=== PATIENT | female | born 1950 | race Caucasian/White ===

== ENCOUNTER 2016-10-07 14:14 | Inpatient (IN) | payer MEDICARE, MEDICAID ==
[~2016-10-07] VITALS: Ht 171.4 cm; Wt 67.6 kg
[~2016-10-07 14:14] MED LIST: ALEN1TAB48 PO; ATOR20TA15 PO; FOLI1TAB4 PO; HUMI20KI SQ; HYDR-3366 PO; METH4TAB6 PO; MIRT30TA PO; [UNRECOGNIZED DRUG - CODE] SQ
[2016-10-22 08:04] VITALS: BP 121/71; PULSE 82; RESP 18; TEMP 98.1; O2SAT 98
[2016-10-22] MEDS ORDERED: CHLORHEXIDINE GLUCONATE 2 % 1 PACK (2 CLOTHS) TOPICAL PRN (08:30)
[2016-10-22] MEDS ORDERED: ROPIVACAINE PERI-ARTICULAR INJECTION. P-ARTICULR SCH ×5 (08:30)
[2016-10-22] MEDS ORDERED: ceFAZolin 2 GM PREMIX 50 ML IV SCH (08:30)
[2016-10-22] MEDS ORDERED: POVIDONE IODINE 5% (ANTISEPSIS KIT) 4 APPLICATIONS EACH NARE PRN (08:30)
[2016-10-22] MEDS: CHLORHEXIDINE GLUCONATE 4% SOLN 120 ML BTL TOPICAL SCH (08:30)
[2016-10-22] MEDS ORDERED: VANCOMYCIN 1000 MG/NS 250 ML (for <70 kg) IV SCH ×2 (08:30)
[2016-10-22] MEDS ORDERED: SODIUM CHLORID 0.9% 500 ML IV PRN (08:30)
[2016-10-22] MEDS ORDERED: LACTATED RINGER'S 1000 ML IV PRN (08:30)
[2016-10-22] MEDS ORDERED: METOPROLOL TARTRATE 25 MG TAB PO PRN (08:30)
[2016-10-22] MEDS ORDERED: INSULIN HUMAN REGULAR 1,000 UNITS/10 ML VIAL SQ PRN (08:30)
[2016-10-22] MEDS ORDERED: GENTAMICIN SULFATE 80 MG/2 ML VIAL ONE (08:59)
[2016-10-22] MEDS ORDERED: ACETAMINOPHEN 1000 MG/100 ML VIAL IV ONE (09:09)
[2016-10-22] MEDS ORDERED: MORPHINE SULFATE 4 MG/ML INJ ONE (09:09)
[2016-10-22] MEDS ORDERED: HYDROCORTISONE SOD SUCCINATE 100 MG VIAL ONE (09:09)
[2016-10-22] MEDS ORDERED: ROPIVACAINE 0.5% PF INJ 30 ML VIAL NERV BLOCK ONE (09:16)
[2016-10-22] MEDS ORDERED: MIDAZOLAM HCL 2 MG/2 ML VIAL ONE (09:19)
[2016-10-22] MEDS ORDERED: fentaNYL CITRATE 250 MCG/5 ML AMP ONE (09:27)
[2016-10-22] MEDS ORDERED: TRANEXAMIC ACID INJ 600 MG in SODIUM CHLORIDE 0.9% INJ 100 ML IV SCH (09:45)
[2016-10-22] MEDS ORDERED: TRANEXAMIC ACID IV SCH (11:00)
[2016-10-22] MEDS ORDERED: SODIUM CHLORIDE 0.9% IV SCH (11:00)
--- NOTE | 2016-10-22 11:33 | PD.OP ---
cc: Curtis Silva MD; Cesar Silva MD Operative Report Date of Surgery: Oct 22, 2016 Preoperative Diagnosis: Osteoarthritis right knee, severe. History of previous right distal femur fracture, remote Postoperative Diagnosis: Same Procedure: Right total knee replacement arthroplasty, anterior exposure Anesthesia: Gen. Surgeon: Cesar Silva General Dentist(s): Curtis Silva Operation and Findings: EBL: 200 cc INDICATION: This patient presents with long-standing arthritis of the knee. Attachment record documents conservative measures. The patient now presents for surgical treatment. NOTE: Curtis Silva M.D. was present for the entire surgical procedure as my assistant boiler operator. In my medical opinion her skill and care was necessary for proper management of this patient. TOURNIQUET TIME: 55 minutes COMPANY: [employer] FEMUR: Size 4, posterior stabilized, right TIBIA: Size 4, fixed bearing PATELLA: 41 mm POLYETHYLENE INSERT: 8 mm PROCEDURE: This patient was brought the operating room and anesthetized in the supine position. The patient was positioned supine on the table. The tourniquet was placed about the thigh, and the leg was scrubbed with alcohol followed by Hibiclens followed by ChloraPrep and draped sterilely. A timeout was done, and antibiotics were given. After exsanguination the tourniquet was inflated to 250 mmHg. An anterior incision was made and a median parapatellar arthrotomy was performed. The previous incision was excised. The patella was released laterally and subluxed allowing freehand cut of the patella which was then sized. A metal cap was placed over the exposed patellar surface for protection. A ems helicopter pilot hole was placed in the distal femur allowing a 5 valgus cut removing 10 mm from the distal femur. Anterior posterior and chamfer cuts were made. The posterior stabilize osteotomy was made. The attention was directed to the tibia. Retractors were positioned. The external alignment guide was used allowing the lateral tibia to be used as referencing guide and cut utilizing an oscillating saw taking care to avoid any injury to the surrounding soft tissues. This was sized properly. Trial reduction showed that the insert fit nicely. The patient had range of motion extension 0 flexion 120. A medial release was not necessary. The bony surfaces prepared. On the back table 2 packets of methylmethacrylate were mixed. The components were cemented. Excess cement was removed. The tourniquet let down and hemostasis was controlled. The final plastic insert was inserted. Range of motion was the same as previously noted. A drain was brought through a separate stab incision. The arthrotomy was repaired with interrupted #1 Vicryl suture, subcutaneous tissue 2-0 Vicryl suture and skin with metallic julianne A sterile dressing was applied. Sponge counts, needle counts and instrument counts were all correct. The patient tolerated procedure well and was taken to recovery in satisfactory condition. FINDINGS: There was severe osteoporosis. The patient had a mild malunion from a previous distal femur fracture. Because of that, the initial ems helicopter pilot hole was placed more lateral and posterior than usual. No complication was appreciated. The final solution appeared to be very satisfactory. Cesar Silva MD Oct 22, 2016 11:33
[2016-10-22] MEDS ORDERED: LACTATED RINGER'S 1000 ML INJ 1,000 ML IV ONE (12:00)
[2016-10-22] MEDS ORDERED: ACETAMINOPHEN/HYDROcodone 325 MG/10 MG TAB PO PRN ×2 (12:00)
[2016-10-22] MEDS ORDERED: ZOLPIDEM TARTRATE 5 MG TAB PO PRN (12:00)
[2016-10-22] MEDS ORDERED: ONDANSETRON HCL 4 MG/2 ML VIAL IVP PRN (12:00)
[2016-10-22] MEDS ORDERED: ALUMINUM/MAGNESIUM/SIMETH 30 ML CUP PO PRN (12:00)
[2016-10-22] MEDS ORDERED: MORPHINE SULFATE 30 MG/30 ML PCA IV SCH (12:00)
[2016-10-22] MEDS ORDERED: ONDANSETRON HCL 4 MG/2 ML VIAL IV PUSH ONE (12:00)
[2016-10-22] MEDS ORDERED: NALOXONE HCL 0.4 MG/ML AMP IV PRN (12:00)
[2016-10-22] MEDS ORDERED: Post-op Orders (for Pharmacy) MISC XX ONE (12:00)
[2016-10-22] MEDS ORDERED: ALENDRONATE SODIUM 70 MG TAB PO SCH (12:00)
[2016-10-22] MEDS ORDERED: TRANEXAMIC ACID INJ 1,000 MG/10 ML AMP IV ONE (12:00)
[2016-10-22] MEDS ORDERED: PROPOFOL 200 MG/20 ML AMP IV ONE (12:00)
[2016-10-22] MEDS ORDERED: SODIUM CHLORIDE 0.9% FLUSH 5 ML FLUSH IVF PRN (12:00)
[2016-10-22] MEDS ORDERED: BEDSIDE COMMODE1 MI1 (12:08)
[2016-10-22] MEDS ORDERED: CPMMACHINE (12:08)
[2016-10-22] MEDS ORDERED: WALKER WHEELS/F1 MIS (12:08)
[2016-10-22] MEDS ORDERED: *morphine SULFATE 8 MG/ML PERIprocedure ONLY ONE ×3 (12:09→12:25)
--- NOTE | 2016-10-22 12:10 | HHI.FF ---
Face to Face Verification Diagnosis: (1) Osteoarthritis of right knee Physical Therapy Gait training, Transfer training, bed to chair Knee: Total knee, Protocol: Right, Full weight bearing Canvas Knee Splint: Other (while sleeping at night) Right LE Weight Bearing: WB as tolerated Left LE Weight Bearing: WB as tolerated Nursing RN: 3 days/week x 2 weeks Nursing: Dressing changes (clean incision with alcohol and apply dry sterile dressing ) Additional Instructions Pt/INR q Wednesday and , call/text results to Mirella ESPINAL [phone] Goal INR 1.5-1.8 I have seen patient Odalis Dumont on 10/22/16. My clinical findings support the need for the requested home health care services because: Deconditioned w/ increased weakness High risk of falls I certify that my clinical findings support that this patient is homebound because: Post-op weakness Unsteady gait/balance Curtis Silva MD Oct 22, 2016 12:10
--- NOTE | 2016-10-22 13:25 | RADRPT ---
EXAM DATE/TIME: 10/22/2016 13:43 [facility] COMPARISON: No previous studies available for comparison. INDICATIONS : Post op right knee. MEDICAL HISTORY : Arthritis. SURGICAL HISTORY : None. ENCOUNTER: Initial ACUITY: 1 day PAIN SCORE: 10/10 LOCATION: Right knee FINDINGS: Right total knee arthroplasty is present. The hardware appears intact. The alignment is anatomic. The re is deformity and density change associated with an old healed fracture of the distal femoral metap hysis. Skin julianne are present ventrally. Surgical drains are present. CONCLUSION: Satisfactory appearance post right TKA Eulalio Saavedra MD on October 22, 2016 at 13:22 Board Certified Radiologist. This report was verified electronically.
[2016-10-22] MEDS: PCA - TOTAL MG MORPHINE DELIVERED PER SHIFT SCH ×2 (14:00→22:00)
[2016-10-22] MEDS: LACTATED RINGER'S 1000 ML INJ 1,000 ML IV SCH ×2 (14:05→23:35)
--- NOTE | 2016-10-22 15:15 | PD.CONS ---
HPI Service Family Medicine Consult Requested By Dr. Curtis Silva Reason for Consult Management of chronic medical conditions, acute medical issues Primary Care Physician Celia Onofre MD History of Present Illness 66 ear old female with past medical history of cardiac arrhythmia status-post AICD placement and rheumatoid arthritis admitted to the hospital for right total knee replacement due to right knee osteoarthritis. Currently postop day 0. Tolerated the procedure well without complication. Currently awake, alert. No nausea, no vomiting. Mild pain, currently well controlled. Denies chest pains , shortness of breath, headaches, vision changes, numbness, tingling, abdominal pain. She has no concerns. Review of Systems Constitutional: DENIES: Fever, Chills Endocrine: DENIES: Heat/cold intolerance Eyes: DENIES: Blurred vision Respiratory: DENIES: Cough, Wheezing, Shortness of breath Cardiovascular: DENIES: Chest pain Gastrointestinal: DENIES: Abdominal pain Genitourinary: DENIES: Dysuria Musculoskeletal: COMPLAINS OF: Joint Swelling (postop right knee) Hematologic/lymphatic: DENIES: Bruising Immunologic/allergic: DENIES: Eczema Neurologic: DENIES: Abnormal gait, Headache, Localized weakness, Paresthesias Psychiatric: DENIES: Confusion, Depression Past Family Social History Past Medical History Rheumatoid Arthritis pacemaker/defibrillator, [employer] Model 5826/Serial [id number] Basal Cell CA, R arm Past Surgical History Left total knee replacement 02/2016 eye operations as a child AICD/pacemaker placement (11/2009) Basal Cell CA excision, R arm Allergies: Coded Allergies: No Known Allergies (Verified , 09/29/16) Family History mother - dementia father - old age, DM II, HTN, CAD, CABG 4V, prostate CA son - down syndrome Social History Lives with son who has Down Syndrome. , not sexually active. 1 glass wine/night. Never smoker. Swims daily. Physical Exam Vital Signs Vital Signs Date Time Temp Pulse Resp B/P Pulse Ox O2 Delivery O2 Flow Rate FiO2 10/22/16 14:05 12 10/22/16 14:00 97.7 66 15 143/80 97 Nasal Cannula 2 10/22/16 13:45 75 14 102/55 96 Nasal Cannula 2 10/22/16 13:30 77 12 140/77 98 Nasal Cannula 3 10/22/16 13:15 74 9 100/54 98 Nasal Cannula 3 10/22/16 13:00 69 10 108/58 98 Nasal Cannula 3 10/22/16 12:45 78 12 112/63 98 Nasal Cannula 3 10/22/16 12:30 72 16 115/59 97 Nasal Cannula 3 10/22/16 12:15 79 15 125/70 98 Nasal Cannula 3 10/22/16 12:02 97.3 89 15 126/74 98 Simple Mask 5 10/22/16 08:04 98.1 82 18 121/71 98 Physical Exam GENERAL: WDWN elder white female sitting up in chair, comfortable, NAD SKIN: No rashes, ecchymoses or lesions. Cool and dry. HEAD: NC/AT EYES: PERRL. EOMI. No conjunctival injection or drainage. ENT: MMM, OP without erythema, tonsillar swelling, or exudate. NECK: Supple, no lymphadenopathy. No JVD. CARDIOVASCULAR: NRRR. Normal S1/S2. No MRG. Brisk capillary refill BUE. RESPIRATORY: CTAB. No crackles or wheezes. GASTROINTESTINAL: Abdomen soft, non-distended, non-tender. MUSCULOSKELETAL: R knee bound in brace with melanie-wrap. No obvious deformity. BUE without cyanosis, clubbing, or edema. NEUROLOGICAL: Awake and alert. Normal speech. Grossly nonfocal. Sensation intact at b/l toes. Laboratory Laboratory Tests Test 10/22/16 10/22/16 08:18 14:08 Blood Type O POSITIVE Antibody Screen NEGATIVE Crossmatch Leukocyte-Reduced Red Blood Cells Blood Bank Comment Antibody Identification Anti-Fya Imaging Last Impressions Knee X-Ray 10/22/16 1200 Signed Impressions: Service Date/Time: October 13:43 - CONCLUSION: Satisfactory appearance post right TKA Eulalio Saavedra MD Assessment and Plan Assessment and Plan 66 yo female with PMH of arrhythmia s/p AICD placement and RA presenting with: Problem List: (1) Status post total right knee replacement Status: Acute Plan: POD 0 s/p right total knee replacement. Tolerated procedure well. - Per ortho, warfarin daily@1600 for DVT prophylaxis titrated per protocol - 5 mg for INR < 1.2 - 2.5 mg for INR 1.2 - 1.5 - 0 mg for INR > 1.5 - Check PT/INR in AM - Pain control with [place] 5 & 10 PRN based on pain scale - Treat with vitamin D as below (2) History of cardiac arrhythmia Status: Chronic Plan: S/p AICD placement. Currently stable, rate on exam borderline bradycardic - Telemetry for 24 hours post-op; if no events can be discontinued (3) Vitamin D deficiency Status: Acute Plan: - Check vitamin D level in AM - Continue 400 units daily, increase based on level (4) Rheumatoid arthritis Status: Chronic Plan: Currently stable, no major nodules appreciated - Continue Humara, medrol (5) Osteoporosis Status: Chronic Plan: Stable - Continue home bisphosphonate (6) Fluids, Electrolytes, and Nutrition Status: Acute Plan: Fluids: Only PO at this time Elecs: Monitor and replete as needed Nutrition: Diet regular basic (7) DVT Prophylaxis Status: Acute Plan: On coumadin, manage as above dw Trev Blum MD R1 Oct 22, 2016 3:15 pm
[2016-10-22 15:49] VITALS: BP 114/54; PULSE 64; RESP 17; TEMP 95.3; O2SAT 99
[2016-10-22 17:54] VITALS: O2SAT 98
[2016-10-22 19:52] VITALS: BP 92/48; PULSE 60; RESP 18; TEMP 95.5; O2SAT 99
[2016-10-22 20:49] VITALS: PULSE 60
[2016-10-22] MEDS: methylPREDNISolone 4 MG TAB PO SCH (20:55)
[2016-10-22] MEDS ORDERED: ATORVASTATIN 20 MG TAB PO SCH (21:00)
[2016-10-22] MEDS: SODIUM CHLORIDE 0.9% FLUSH 5 ML FLUSH IVF SCH (21:00)
[2016-10-22] MEDS ORDERED: MIRTAZAPINE 15 MG TAB PO SCH (21:00)
[2016-10-22 23:10] VITALS: BP 84/50; PULSE 57; RESP 18; TEMP 95.2; O2SAT 95
[2016-10-22] MEDS ORDERED: SODIUM CHLORID 0.9% 500 ML INJ 500 ML IV ONE (23:30)
[2016-10-23] VITALS (8 sets, daily range): BP systolic 80–95; BP diastolic 47–62; PULSE 57–67; RESP 16–18; TEMP 95.1–95.5; O2SAT 96–100
[2016-10-23] MEDS ORDERED: SODIUM CHLOR 0.9% 250 ML INJ 250 ML IV ONE ×2 (01:00→02:45)
[2016-10-23 05:30] LABS: INTERNATIONAL NORMALIZED RATIO 1.7 RATIO; PROTHROMBIN TIME - PATIENT 19.1 SEC (9.8-11.6)
[2016-10-23 05:31] LABS: HEMATOCRIT 26.5 % (35.0-46.0); MEAN CELL VOLUME 89.7 FL (80.0-100.0); MEAN CORPUSCULAR HEMOGLOBIN 29.4 PG (27.0-34.0); MEAN CORPUSCULAR HGB CONC 32.8 % (32.0-36.0); PLATELET COUNT 180 TH/MM3 (150-450); RED BLOOD COUNT 2.96 MIL/MM3 (4.00-5.30); RED CELL DISTRIBUTION WIDTH 16.4 % (11.6-17.2); REVIEW FLAG FINAL; WHITE BLOOD COUNT 10.9 TH/MM3 (4.0-11.0)
[2016-10-23 05:37] LABS: POTASSIUM 4.5 MEQ/L (3.5-5.1)
[2016-10-23] MEDS: PCA - TOTAL MG MORPHINE DELIVERED PER SHIFT SCH ×2 (06:00→14:00)
--- NOTE | 2016-10-23 07:50 | PD.ORT.PN ---
Subjective Subjective Remarks pt doing well, states her right knee is fine, minimal pain does state her blood pressure has been running low Objective Vitals Vital Signs Date Time Temp Pulse Resp B/P Pulse Ox O2 Delivery O2 Flow Rate FiO2 10/23/16 03:30 95.1 59 16 92/52 96 10/23/16 02:05 57 88/54 10/23/16 02:01 86/54 10/23/16 00:33 80/47 82/54 10/22/16 23:10 95.2 57 18 84/50 95 10/22/16 20:49 60 10/22/16 19:52 95.5 60 18 92/48 99 10/22/16 17:54 98 Nasal Cannula 3.00 10/22/16 15:49 95.3 64 17 114/54 99 10/22/16 14:05 12 10/22/16 14:00 97.7 66 15 143/80 97 Nasal Cannula 2 10/22/16 13:45 75 14 102/55 96 Nasal Cannula 2 10/22/16 13:30 77 12 140/77 98 Nasal Cannula 3 10/22/16 13:15 74 9 100/54 98 Nasal Cannula 3 10/22/16 13:00 69 10 108/58 98 Nasal Cannula 3 10/22/16 12:45 78 12 112/63 98 Nasal Cannula 3 10/22/16 12:30 72 16 115/59 97 Nasal Cannula 3 10/22/16 12:15 79 15 125/70 98 Nasal Cannula 3 10/22/16 12:02 97.3 89 15 126/74 98 Simple Mask 5 10/22/16 08:04 98.1 82 18 121/71 98 I/O 10/22/16 10/22/16 10/22/16 10/23/16 10/23/16 10/23/16 07:00 15:00 23:00 07:00 15:00 23:00 Intake Total 1400 ml 1075 ml 1737 ml Output Total 325 ml 375 ml 930 ml Balance 1075 ml 700 ml 807 ml Intake Oral 480 ml 120 ml IV Total 200 ml 595 ml 1617 ml Other 1200 ml Output Urine Total 275 ml 225 ml 800 ml Drainage Total 100 ml 130 ml Estimated Blood Loss 50 ml Autotransfusion 50 ml # Bowel Movements 0 0 Result Diagram: 10/23/16 0446 10/23/16 0446 Other Results Laboratory Tests Test 10/23/16 04:46 Prothrombin Time 19.1 SEC (9.8-11.6) Prothromb Time International 1.7 RATIO Ratio Imaging Last 24 hours Impressions Knee X-Ray 10/22/16 1200 Signed Impressions: Service Date/Time: October 13:43 - CONCLUSION: Satisfactory appearance post right TKA Eulalio Saavedra MD Objective Remarks patient resting comfortably in bed right knee dressing dry and intact canvas knee splint in place no calf tenderness, neg homans sign Assessment & Plan Assessment and Plan POD #1 s/p R TKA coumadin dvt prop per protocol, hold today for INR 1.7 PT-WBAT, CPM hgb 8.7, start iron BID patient would like to be discharged home today, I stated she is on tele per medical until she is 24 hours post op and blood pressure continues to be low if she is medically stable this afternoon and has completed all therapy, then she can be discharged otherwise will discharge tomorrow home with [facility] coumadin 1 mg and norco 10 mg rx in chart Mirella Mccabe Oct 23, 2016 07:50
[2016-10-23] MEDS: CHLORHEXIDINE GLUCONATE 4% SOLN 120 ML BTL TOPICAL SCH (08:30)
[2016-10-23] MEDS ORDERED: CHOLECALCIFEROL (VIT D3) 400 UNIT TAB PO SCH (09:00)
[2016-10-23] MEDS: SODIUM CHLORIDE 0.9% FLUSH 5 ML FLUSH IVF SCH (09:00)
[2016-10-23] MEDS ORDERED: FERROUS SULFATE 325 MG (65 MG ELEMENTAL IRON) TAB PO SCH (09:00)
[2016-10-23] MEDS: methylPREDNISolone 4 MG TAB PO SCH (09:56)
[2016-10-23] MEDS ORDERED: FERR325T PO (11:31)
[2016-10-23] MEDS ORDERED: WARFARIN SOD 5 MG TAB PO SCH ×2 (12:00→16:00)
[2016-10-23] MEDS ORDERED: METHOTREXATE SOD PF 50 MG/2 ML VIAL SQ SCH (12:00)
[2016-10-23] MEDS: LACTATED RINGER'S 1000 ML INJ 1,000 ML IV SCH (13:00)
[2016-10-23] MEDS ORDERED: ADALIMUMAB 20 MG SQ SCH (13:00)
--- NOTE | 2016-10-23 13:39 | HHI.FPPN ---
Subjective Remarks Sitting up in bed, no distress. Pain well controlled. Has been ambulating without much difficulty. Blood pressures running low but her baseline is low and she is asymptomatic. Telemetry reviewed and discontinued. Very eager to go home. No chest pain, shortness of breath, abdominal pain, nausea, vomiting, diarrhea. No calf tenderness. (Miller Adam MD R2) Objective Vitals Vital Signs Date Time Temp Pulse Resp B/P Pulse Ox O2 Delivery O2 Flow Rate FiO2 10/23/16 12:00 95.5 67 18 95/47 96 10/23/16 08:00 95.3 59 18 89/51 100 10/23/16 08:00 99 21 10/23/16 03:30 95.1 59 16 92/52 96 10/23/16 02:05 57 88/54 10/23/16 02:01 86/54 10/23/16 00:33 80/47 82/54 10/22/16 23:10 95.2 57 18 84/50 95 10/22/16 20:49 60 10/22/16 19:52 95.5 60 18 92/48 99 10/22/16 17:54 98 Nasal Cannula 3.00 10/22/16 15:49 95.3 64 17 114/54 99 10/22/16 14:05 12 10/22/16 14:00 97.7 66 15 143/80 97 Nasal Cannula 2 10/22/16 13:45 75 14 102/55 96 Nasal Cannula 2 10/22/16 13:30 77 12 140/77 98 Nasal Cannula 3 I/O 10/22/16 10/22/16 10/22/16 10/23/16 10/23/16 10/23/16 07:00 15:00 23:00 07:00 15:00 23:00 Intake Total 1400 ml 1075 ml 1737 ml Output Total 325 ml 375 ml 930 ml Balance 1075 ml 700 ml 807 ml Intake Oral 480 ml 120 ml IV Total 200 ml 595 ml 1617 ml Other 1200 ml Output Urine Total 275 ml 225 ml 800 ml Drainage Total 100 ml 130 ml Estimated Blood Loss 50 ml Autotransfusion 50 ml # Bowel Movements 0 0 (Miller Adam MD R2) Result Diagram: 10/23/16 0446 10/23/16 0446 Imaging Last 72 hours Impressions Knee X-Ray 10/22/16 1200 Signed Impressions: Service Date/Time: October 13:43 - CONCLUSION: Satisfactory appearance post right TKA Eulalio Saavedra MD Objective Remarks GENERAL: Sitting up in chair, no distress SKIN: No rashes, ecchymoses or lesions. Surgical scar left knee, right knee with bandage. HEAD: NC/AT EYES: PERRL. EOMI. No conjunctival injection or drainage. ENT: MMM, OP without erythema, tonsillar swelling, or exudate. NECK: Supple, no lymphadenopathy. No JVD. CARDIOVASCULAR: NRRR. Normal S1/S2. No MRG. RESPIRATORY: CTAB. No crackles or wheezes. GASTROINTESTINAL: Abdomen soft, non-distended, non-tender. MUSCULOSKELETAL: R knee bound with bandage in place. NEUROLOGICAL: Awake and alert. Normal speech. Sensation intact at b/l toes. ( Miller Adam MD R2) A/P Assessment and Plan 66 yo female with PMH of arrhythmia s/p AICD placement and RA who is s/p day 1 after total knee replacement. Discharge Planning Plan for discharge home today with wheeled walker. She declines rehab. (Milelr Adam MD R2) Attending Attestation Patient seen, examined, and discussed with resident team. I agree with assessment and management as documented and discussed with me. Pt reports that her pain is controlled. She requests discharge home - she has all equipment at home and also has help. Nursing is concerned about low BPs. Pt reports that she is out of bed without lightheadedness. Review of BPs as an outpatient reveal that she is essentially at baseline blood pressure. She is medically cleared for discharge. (Celia Onofre MD) Problem List: (1) Status post total right knee replacement Status: Acute Plan: POD 1 s/p right total knee replacement. Tolerated procedure well. Ambulating without much difficulty. Pain well controlled. She does not want rehab. Eager to go home today. - Per ortho, warfarin daily@1600 for DVT prophylaxis titrated per protocol - 5 mg for INR < 1.2 - 2.5 mg for INR 1.2 - 1.5 - 0 mg for INR > 1.5 - Check PT/INR in AM - Pain control with [place] 5 & 10 PRN, not requiring it thus far - Treat with vitamin D as below (2) Vitamin D deficiency Status: Acute Plan: Vitamin D 19.6. - Continue vitamin D supplementation, 1000 mg daily. (3) History of cardiac arrhythmia Status: Chronic Plan: S/p AICD placement. Telemetry reviewed, no arrhythmic events. - Discontinue telemetry (4) Rheumatoid arthritis Status: Chronic Plan: Currently stable, no major nodules appreciated - Continue Humira, Medrol (5) Osteoporosis Status: Chronic Plan: Stable - Continue home bisphosphonate (6) Fluids, Electrolytes, and Nutrition Status: Acute Plan: Fluids: PO Nutrition: Diet regular basic (7) DVT Prophylaxis Status: Acute Plan: On coumadin, manage as above sdw Dr. Onofre (Miller Adam MD R2) Miller Adam MD R2 Oct 23, 2016 13:38 Celia Onofre MD Oct 23, 2016 21:20
[2016-10-23] MEDS ORDERED: VITA100018 PO (13:52)
[2016-10-24] MEDS ORDERED: CHOLECALCIFEROL (VIT D3) 1000 UNIT TAB PO SCH (09:00)
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
[2016-11-17] MEDS ORDERED: VITA100018 PO (13:20)
[2016-11-17] MEDS ORDERED: FERR325T PO (15:35)
[2016-11-18] MEDS ORDERED: FERR325T PO (16:55)
== END 2016-10-23 17:31 | disposition home health service (06) | DRG 470 ==
LOC: HSDI 10-22 06:59 → N06A 10-22 15:07
PROVIDERS: ADMIT Orthopaedic Surgery Orthopaedic Surgery of the Spine; ATTEND Orthopaedic Surgery Orthopaedic Surgery of the Spine
PROC: 3E0T3CZ (ICD-10-PCS; 2016-10-22)
PROC: 0SRC0J9 Replacement of Right Knee Joint with Synthetic Substitute, Cemented, Open Approach (ICD-10-PCS; principal; 2016-10-22 09:26)
DX: M17.11 Unilateral primary osteoarthritis, right knee (principal); E55.9 Vitamin D deficiency, unspecified; M06.9 Rheumatoid arthritis, unspecified; M81.0 Age-related osteoporosis without current pathological fracture; Z95.810 Presence of automatic (implantable) cardiac defibrillator; Z85.828 Personal history of other malignant neoplasm of skin; Z96.652 Presence of left artificial knee joint
CPT/HCPCS: 36430; 73560; 80048; 82306; 83735; 84100; 85027; 85610; 86077; 86850; 86870; 86900; 86901; 86902; 86920; 86922; 94150; C1776; J0131; J0171; J0690; J0735; J1580; J1720; J1885; J2250; J2270; J2405; J2795; J3010; J3370; J7040; J7050; J7120; J7509; J9250; L1830

== ENCOUNTER → 2016-10-08 | Outpatient (CLI) | payer MEDICARE, MEDICAID ==
[~2016-10-08] MED LIST changes: +ASPI1TAB69 PO; +AZIT500T2 PO; +BEDSIDE COMMODE1 MI1; +CHOL400D2 PO; +CPMMACHINE; +FERR325T PO; +FERR325T20 PO; +FOLI20CA PO; +FOSA70TA PO; +HYDR-3583 PO; +METH8TAB3 PO; +VIGA0.5D LEFT EYE; +VITA100018 PO; +WALKER WHEELS/F1 MIS
[2016-10-08 10:00] LABS: BACTERIA, URINE RARE /hpf; BLOOD, URINE NEG (NEG); GLUCOSE,URINE NEG (NEG); KETONE, URINE NEG (NEG); MUCUS URINE FEW /lpf (OCC); NITRITE,URINE NEG (NEG); PH, URINE 5.5 (5.0-8.5); URINE COLOR YELLOW (YELLW/STRAW)
[2016-10-08 10:03] LABS: AUTOMATED NEUTROPHIL # 6.1 TH/MM3 (1.8-7.7); BASOPHIL # 0.1 TH/MM3 (0-0.2); BASOPHIL % 0.8 % (0.0-2.0); EOSINOPHIL # 0.3 TH/MM3 (0-0.4); EOSINOPHIL % 2.7 % (0.0-4.0); HEMATOCRIT 34.4 % (35.0-46.0); HEMO FLAGS DIFF FINAL; LYMPH % 28.1 % (9.0-44.0); LYMPHOCYTE # 2.8 TH/MM3 (1.0-4.8); MEAN CELL VOLUME 90.3 FL (80.0-100.0); MEAN CORPUSCULAR HEMOGLOBIN 28.9 PG (27.0-34.0); MONO % 7.1 % (0.0-8.0); NEUT % 61.3 % (16.0-70.0); PLATELET COUNT 339 TH/MM3 (150-450); RED CELL DISTRIBUTION WIDTH 15.5 % (11.6-17.2); WHITE BLOOD COUNT 9.9 TH/MM3 (4.0-11.0)
[2016-10-08 10:07] LABS: COMMENT (UR) CULT NOT INDICATED; CULTURE IF INDICATED CULT NOT INDICATED
[2016-10-08 10:33] LABS: BICARBONATE 31.4 MEQ/L (21.0-32.0); POTASSIUM 4.1 MEQ/L (3.5-5.1)
== END ==
LOC: CPRE 08:54
PROVIDERS: ATTEND Orthopaedic Surgery Orthopaedic Surgery of the Spine
DX: Z01.810 Encounter for preprocedural cardiovascular examination (principal); Z01.812 Encounter for preprocedural laboratory examination; Z01.818 Encounter for other preprocedural examination; M17.11 Unilateral primary osteoarthritis, right knee
CPT/HCPCS: 36415; 80048; 81001; 85025

== ENCOUNTER 2016-12-03 06:59 | Emergency (ER) | payer MEDICARE, MEDICAID ==
[~2016-12-03] VITALS: Ht 170.2 cm; Wt 64.0 kg
[~2016-12-03 06:59] MED LIST changes: -ASPI1TAB69 PO; -AZIT500T2 PO; -CHOL400D2 PO; -FERR325T20 PO; -FOLI20CA PO; -FOSA70TA PO; -HYDR-3583 PO; -METH8TAB3 PO; -VIGA0.5D LEFT EYE
[2016-12-03 07:06] VITALS: BP 111/75; PULSE 96; RESP 16; TEMP 98.1; O2SAT 99
[2016-12-03] MEDS ORDERED: FOSA70TA PO (07:16)
[2016-12-03] MEDS ORDERED: HYDR-3583 PO (07:16)
[2016-12-03] MEDS ORDERED: FERR325T20 PO (07:16)
[2016-12-03] MEDS ORDERED: FOLI20CA PO (07:16)
[2016-12-03] MEDS ORDERED: METH8TAB3 PO (07:17)
[2016-12-03] MEDS ORDERED: VIGA0.5D LEFT EYE (07:40)
--- NOTE | 2016-12-03 07:41 | PD ---
HPI Chief Complaint: Eye Problems/Injury Time Seen by Provider: 07:33 Travel History International Travel<30 days: No Contact w/Intl Traveler<30days: No Traveled to known affect area: No History of Present Illness HPI 66-year-old female with history of previous eye surgeries in the left eye for crossed eyes, follows up with ophthalmology regularly, presents to the ER today because she has had at least 1 month history of irritation to the left eye and increased tearing in the past few days. She states that the pain is currently a 7 out of 10. She denies any vision change or any other issues. Modifying Factors: None Associated Signs & Symptoms: Left eye irritation and pain Risk Factors: Previous eye surgeries in the left eye PFSH Past Medical History Arthritis: Yes (RHUEMATOID) Autoimmune Disease: Yes (RHUEMATOID ARTHRITIS) Cancer: No Cardiovascular Problems: Yes ([place], [employer]) High Cholesterol: Yes Diabetes: No Diminished Hearing: No Endocrine: No Gastrointestinal Disorders: Yes (GERD) Genitourinary: No Hepatitis: No Hiatal Hernia: No Hypertension: Yes Immune Disorder: Yes (RA) Musculoskeletal: Yes (OA, RA, OSTEOPOROSIS) Neurologic: No Psychiatric: Yes (ANXIETY) Reproductive: No Respiratory: No Seizures: Yes Thyroid Disease: No Influenza Vaccination: No ?: Not Menopausal: Yes Past Surgical History Abdominal Surgery: Yes (APPY) AICD: No Appendectomy: Yes (1965) Body Medical Devices: PINS MONTSE. LEGS Cardiac Surgery: No Section: Yes (X4) Ear Surgery: No Endocrine Surgery: No Eye Surgery: Yes (MULTI. MONTSE. EYE SX'S POST TRAUMA) Genitourinary Surgery: No Gynecologic Surgery: Yes (C SECTIONS (X6), D&C'S) Joint Replacement: No Oral Surgery: No Pacemaker: Yes (P/G #[id number], [employer]) Thoracic Surgery: No Other Surgery: Yes Social History Alcohol Use: Yes (2 BEERS PER DAY AND 3 MIXED DRINKS ON WEEKEND) Tobacco Use: No Substance Use: No Allergies-Medications (Allergen,Severity, Reaction): Coded Allergies: No Known Allergies (Verified , 12/03/16) Reported Meds & Prescriptions Reported Meds & Active Scripts Active Vitamin D3 (Cholecalciferol) 1,000 Unit Tab 1,000 Units PO DAILY Mirtazapine 30 Mg Tab 30 Mg PO HS Reported Methylprednisolone 8 Mg Tab 4 Mg PO BID Hydrocodone-Acetaminophen 10-325 mg Tab 1 Tab PO Q6H PRN Folic Acid 20 Mg Cap 1 Mg PO Ferosul (Ferrous Sulfate) 325 Mg Tablet 325 Mg PO BID Fosamax (Alendronate Sodium) 70 Mg Tab 70 Mg PO Q7D Methotrexate Sodium 50 Mg/2 Ml Inj 25 Mg SQ WEEKLY Humira 2-Pack Inj (Adalimumab 2-Pack Inj) 20 Mg/0.4 Ml Syr 20 Mg SQ Q14D Review of Systems Except as stated in HPI: all other systems reviewed are Neg Physical Exam Narrative GENERAL: Well-nourished, well-developed elderly white female patient currently in mild distress. Awake and oriented 3. SKIN: Focused skin assessment warm/dry. HEAD: Normocephalic. EYES: No scleral icterus. Left conjunctival injection. Pupils are equal, round , reactive to light bilaterally. Extraocular movements are intact. Fluorescein exam shows a corneal ulcer or abrasion notable in the 1 o'clock position of the iris area. No other uptake was noted. NECK: Supple, trachea midline. No JVD or lymphadenopathy. Data Data Last Documented VS Vital Signs Date Time Temp Pulse Resp B/P Pulse Ox O2 Delivery O2 Flow Rate FiO2 12/03/16 07:06 98.1 96 16 111/75 99 MDM Medical Decision Making Medical Screen Exam Complete: Yes Emergency Medical Condition: Yes Medical Record Reviewed: Yes Differential Diagnosis Corneal abrasion versus corneal ulcer versus conjunctivitis Narrative Course There is notable floor seen uptake at the one o'clock position in the cornea. At this point, my plan would be to give her antibiotics for the eye and have her follow-up closely with ophthalmology for further evaluation. Return for any worsening in symptoms as necessary. The plan has been discussed with her and she states understanding. Diagnosis Primary Impression: Corneal abrasion, left Med/Other Pt SpecificInfo: Prescription(s) given Scripts Moxifloxacin Opth Drops (Vigamox Opth Drops)0.5 % Soln1 Drop LEFT EYE TID #1 BOTTLE Ref 0 Prov:Phani Cruz MD 12/03/16 Disposition: 01 DISCHARGE HOME Condition: Stable Phani Cruz MD December 03, 2016 07:41
== END 2016-12-03 07:47 | disposition home or self-care (01) ==
LOC: PHED 06:59
DX: S05.02XA Injury of conjunctiva and corneal abrasion without foreign body, left eye, initial encounter (principal); M06.9 Rheumatoid arthritis, unspecified; E78.00 Pure hypercholesterolemia, unspecified; K21.9 Gastro-esophageal reflux disease without esophagitis; I10 Essential (primary) hypertension; M81.0 Age-related osteoporosis without current pathological fracture; F41.9 Anxiety disorder, unspecified; R56.9 Unspecified convulsions; X58.XXXA Exposure to other specified factors, initial encounter
CPT/HCPCS: 99283

== ENCOUNTER 2017-12-13 13:17 | Emergency (ER) | payer MEDICAID, MEDICARE ==
[~2017-12-13] VITALS: Ht 170.2 cm; Wt 69.0 kg
[~2017-12-13 13:17] MED LIST changes: -ALEN1TAB48 PO; -ATOR20TA15 PO; -BEDSIDE COMMODE1 MI1; -CPMMACHINE; -FERR325T PO; +FERR325T20 PO; -FOLI1TAB4 PO; +FOLI20CA PO; +FOSA70TA PO; -HYDR-3366 PO; +HYDR-3583 PO; -METH4TAB6 PO; +METH8TAB3 PO; +VIGA0.5D LEFT EYE; -WALKER WHEELS/F1 MIS
[2017-12-13 13:40] VITALS: BP 148/69; PULSE 84; RESP 20; O2SAT 96
[2017-12-13] MEDS ORDERED: HYDROmorphone HCL PF 2 MG/ML VIAL IV PUSH ONE (14:15)
[2017-12-13] MEDS ORDERED: PROPOFOL 200 MG/20 ML AMP IV ONE (14:15)
--- NOTE | 2017-12-13 14:17 | RADRPT ---
EXAM DATE: 12/13/2017 2:07 PM EDT AGE/SEX: 67 years / Female INDICATIONS: Right humerus pain after fall. CLINICAL DATA: This is the patient's initial encounter. Patient reports that signs and symptoms have been present for 1 day and indicates a pain score of 10/10. MEDICAL/SURGICAL HISTORY: None. None. COMPARISON: No prior [place] exams available for comparison. FINDINGS: 2 views of the right humerus reveal an acute comminuted spiral type fracture involving the proximal h umeral metadiaphysis. There is angulation of 60 degrees with apex oriented anteromedially. There is c oncern for possible distal humeral fracture involving the distal metaphysis. This area is poorly visu alized on one of the images due to overlying soft tissues. CONCLUSION: Comminuted proximal humeral metadiaphyseal fracture. Questionable distal humeral fracture. This area is poorly seen on one image due to overlapping soft tissues. Consider elbow x-rays to better evaluate . Electronically signed by: Lorenzo Batista MD 12/13/2017 2:16 PM EDT
--- NOTE | 2017-12-13 14:29 | PD ---
HPI . Arm injury Chief Complaint: Fall Time Seen by Provider: 13:46 Travel History International Travel<30 days: No Contact w/Intl Traveler<30days: No Traveled to known affect area: No History of Present Illness HPI This patient presented to us by EVAC following a slip and fall. She has injured her right upper arm. Her pain is severe and is exacerbated by movement and palpation. The injury occurred just prior to arrival. This patient has been followed as an outpatient by Dr. Michaels for orthopedic issues. She states that she does not want to be admitted to the hospital. EVAC treated her with a long-arm splint and morphine, 8 mg IV. She is still complaining of pain at 01/18. 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 LEGS Cardiac Surgery: No Section: Yes (X4) Ear Surgery: No Endocrine Surgery: No Eye Surgery: Yes (MULTI. MONTSE. EYE SX'S POST TRAUMA) Genitourinary Surgery: No Gynecologic Surgery: Yes Joint Replacement: No Oral Surgery: No Pacemaker: Yes (P/G #[id number], [facility]) Thoracic Surgery: No Other Surgery: Yes Social History Alcohol Use: Yes Tobacco Use: No Substance Use: No Allergies-Medications (Allergen,Severity, Reaction): Coded Allergies: No Known Allergies (Verified , 12/03/16) Reported Meds & Prescriptions Reported Meds & Active Scripts Active Mirtazapine 30 Mg Tab 30 Mg PO HS Vigamox Opth Drops (Moxifloxacin Opth Drops) 0.5 % Soln 1 Drop LEFT EYE TID Vitamin D3 (Cholecalciferol) 1,000 Unit Tab 1,000 Units PO DAILY Reported Methylprednisolone 8 Mg Tab 4 Mg PO BID Hydrocodone-Acetaminophen 10-325 mg Tab 1 Tab PO Q6H PRN Folic Acid 20 Mg Cap 1 Mg PO Ferosul (Ferrous Sulfate) 325 Mg Tablet 325 Mg PO BID Fosamax (Alendronate Sodium) 70 Mg Tab 70 Mg PO Q7D Methotrexate Sodium 50 Mg/2 Ml Inj 25 Mg SQ WEEKLY Humira 2-Pack Inj (Adalimumab 2-Pack Inj) 20 Mg/0.4 Ml Syr 20 Mg SQ Q14D Review of Systems Except as stated in HPI: all other systems reviewed are Neg Physical Exam Narrative GENERAL: Awake and alert. SKIN: Warm and dry. Normal color and turgor. HEAD: Normocephalic/atraumatic. EYES: Pupils are equal. Extraocular movements are intact. NECK: Normal range of motion. Supple. CARDIOVASCULAR: Regular rate and rhythm. RESPIRATORY: Nonlabored respirations. Normal sats. MUSCULOSKELETAL: Obvious deformity distal to the right humeral head. Distally neurovascularly intact. NEUROLOGICAL: A and O 3. Nonfocal. PSYCHIATRIC: Appropriate mood and affect. Data Data Last Documented VS Vital Signs Date Time Temp Pulse Resp B/P (MAP) Pulse Ox O2 Delivery O2 Flow Rate FiO2 12/13/17 13:40 84 20 148/69 (95) 96 Room Air Orders Orders Humerus (Min 2vws) (12/13/17 ) ^ Saline Lock (12/13/17 13:51) Consent (12/13/17 14:02) Hydromorphone Pf Inj (Dilaudid Pf Inj) (12/13/17 14:15) Propofol 200 Mg/20 Ml Inj (Diprivan 200 (12/13/17 14:15) Consult Orthopedic (12/13/17 ) (Hub Use Only)Inp Phy Cons/Ref (12/13/17 ) MDM Medical Decision Making Medical Screen Exam Complete: Yes Emergency Medical Condition: Yes Differential Diagnosis Differential diagnosis of extremity trauma includes but is not limited to fracture, sprain or strain, dislocation, contusion Narrative Course This patient presents with an injury to her right humerus. X-ray shows a fracture with several segments. There is significant dislocation. I plan to use IV sedation to straighten the fracture. I have consulted orthopedics. However, the patient reports that she does not want to be admitted to the hospital. She states that she will be able to follow -up with Dr. Xenia mondragon as an outpatient. IV sedation was done so that the patient could be placed comfortably into a sling and swath. This was done by the [facility]. I have queried [facility]. She is prescribed [place] 10 mg tablets total #120 monthly. Her pain is going to be very difficult to control. I will give her a prescription for Dilaudid 4 mg tablets total #12 until she can get in to see Dr. Michaels and have this fracture definitively cared for. Procedures Procedure Narrative After the risks and benefits were discussed the following procedure was performed: MODERATE SEDATION: The patient was placed on a supervisor press room and pulse oximetry. An ambu bag and suction were immediately available at bedside. The patient was monitored by the nurse and respiratory therapy. Oxygen saturation, end tidal CO2, heart rate and blood pressure were monitored. Procedural sedation was acheived using propofol. The patient was observed until awake and alert. Procedural Sedation time in attendance was 10 minutes. Diagnosis Primary Impression: Right humeral fracture Qualified Codes: S42.361A - Displaced segmental fracture of shaft of humerus, right arm, initial encounter for closed fracture Referrals: Cesar Silva MD Patient Instructions: Ankle Fracture in Children (GEN), General Instructions, Narcotic given in the ED Med/Other Pt SpecificInfo: Prescription(s) given Scripts Hydromorphone (Dilaudid) 4 Mg Tab 4 MG PO Q6H Y for Pain Management, #12 TAB 0 Refills Prov: Nicky Carmona MD 12/13/17 Disposition: 01 DISCHARGE HOME Condition: Stable Nicky Carmona MD Dec 13, 2017 14:29
[2017-12-13] MEDS ORDERED: DILA4TAB10 PO (15:34)
== END 2017-12-13 16:45 | disposition home or self-care (01) ==
LOC: NEPD 13:17
DX: S42.361A Displaced segmental fracture of shaft of humerus, right arm, initial encounter for closed fracture (principal); W01.0XXA Fall on same level from slipping, tripping and stumbling without subsequent striking against object, initial encounter
CPT/HCPCS: 23605; 73060; 96374; 99284; J1170

== ENCOUNTER 2017-12-21 07:58 | Observation (INO) | payer MEDICARE, OTHER ==
[~2017-12-21] VITALS: Ht 170.2 cm; Wt 59.5 kg
[~2017-12-21 07:58] MED LIST changes: +DILA4TAB10 PO
[2017-12-21] MEDS ORDERED: SODIUM CHLORID 0.9% 500 ML IV PRN (09:15)
[2017-12-21] MEDS ORDERED: METOPROLOL TARTRATE 25 MG TAB PO PRN (09:15)
[2017-12-21] MEDS ORDERED: CHLORHEXIDINE GLUCONATE 2 % 1 PACK (2 CLOTHS) TOPICAL PRN (09:15)
[2017-12-21] MEDS ORDERED: POVIDONE IODINE 5% (ANTISEPSIS KIT) 4 APPLICATIONS EACH NARE PRN (09:15)
[2017-12-21] MEDS ORDERED: LACTATED RINGER'S 1000 ML IV PRN (09:15)
[2017-12-21] MEDS ORDERED: ceFAZolin 2 GM PREMIX 50 ML IV SCH (09:30)
[2017-12-21] MEDS ORDERED: CHLORHEXIDINE GLUCONATE 4% SOLN 120 ML BTL TOPICAL SCH (09:30)
[2017-12-21] MEDS ORDERED: VANCOMYCIN 1000 MG/NS 250 ML (for <70 kg) IV SCH ×2 (09:30)
[2017-12-21] MEDS ORDERED: ACETAMINOPHEN/HYDROcodone 325 MG/10 MG TAB ONE (09:56)
[2017-12-21] MEDS ORDERED: ACETAMINOPHEN 1000 MG/100 ML 100 ML IV ONE (10:00)
[2017-12-21] MEDS ORDERED: VANCOMYCIN HCL 1000 MG VIAL ONE (10:08)
[2017-12-21] MEDS ORDERED: ceFAZolin INJ 1,000 MG VIAL ONE (10:08)
[2017-12-21] MEDS ORDERED: GENTAMICIN SULFATE 80 MG/2 ML VIAL ONE (10:09)
[2017-12-21] MEDS ORDERED: ACETAMINOPHEN/HYDROcodone 325 MG/10 MG TAB PO ONE (10:15)
[2017-12-21 10:27] LABS: BASOPHIL % 0.8 % (0.0-2.0); EOSINOPHIL # 0.1 TH/MM3 (0-0.4); EOSINOPHIL % 1.6 % (0.0-4.0); HEMATOCRIT 22.5 % (35.0-46.0); HEMOGLOBIN 7.3 GM/DL (11.6-15.3); LYMPH % 22.8 % (9.0-44.0); LYMPHOCYTE # 1.4 TH/MM3 (1.0-4.8); MEAN CORPUSCULAR HGB CONC 32.6 % (32.0-36.0); MEAN PLATELET VOLUME 8.3 FL (7.0-11.0); MONO % 7.4 % (0.0-8.0); MONOCYTE # 0.4 TH/MM3 (0-0.9); NEUT % 67.4 % (16.0-70.0); PLATELET COUNT 220 TH/MM3 (150-450); RED BLOOD COUNT 2.53 MIL/MM3 (4.00-5.30); RED CELL DISTRIBUTION WIDTH 14.8 % (11.6-17.2)
[2017-12-21] MEDS ORDERED: LIDOCAINE HCL 1% PF 5 ML SYRINGE OTHER ONE (12:00)
[2017-12-21] MEDS ORDERED: ONDANSETRON HCL 4 MG/2 ML VIAL IV ONE (12:00)
[2017-12-21] MEDS ORDERED: PROPOFOL 200 MG/20 ML AMP IV ONE (12:00)
[2017-12-21] MEDS ORDERED: ESMOLOL HCL 100 MG/10 ML VIAL IV ONE (12:00)
[2017-12-21] MEDS ORDERED: ROCURONIUM INJ 50 MG/5 ML SYRINGE IV PUSH ONE (12:00)
[2017-12-21] MEDS ORDERED: PHENYLEPHRINE HCL 10 MG/ML VIAL IV ONE (12:00)
[2017-12-21] MEDS ORDERED: LACTATED RINGER'S 1000 ML INJ 2,000 ML IV ONE (12:00)
[2017-12-21] MEDS ORDERED: NEOSTIGMINE 5 MG/5 ML SYRINGE IV PUSH ONE (12:00)
[2017-12-21] MEDS ORDERED: DEXAMETHASONE SOD PHOS 4 MG/ML VIAL IV ONE (12:00)
[2017-12-21] MEDS ORDERED: GLYCOPYRROLATE 1 MG/5 ML SYRINGE IV PUSH ONE (12:00)
[2017-12-21] MEDS ORDERED: ACETAMINOPHEN/HYDROcodone 325 MG/10 MG TAB PO PRN (13:00)
[2017-12-21] MEDS ORDERED: MORPHINE SULFATE 4 MG/ML INJ IV PUSH PRN (13:00)
[2017-12-21] MEDS ORDERED: diphenhydrAMINE HCL 25 MG CAP PO PRN (13:00)
[2017-12-21] MEDS ORDERED: HYDROmorphone HCL 4 MG TAB PO PRN (13:00)
[2017-12-21] MEDS ORDERED: ONDANSETRON HCL 4 MG/2 ML VIAL IVP PRN (13:00)
[2017-12-21] MEDS ORDERED: HYDR-3366 PO (13:04)
--- NOTE | 2017-12-21 13:09 | PD.OP ---
cc: Tripp Lopez MD Operative Report Date of Surgery: Dec 21, 2017 Preoperative Diagnosis: Comminuted right proximal humerus fracture with extension into the humeral shaft Postoperative Diagnosis: Procedure: Open reduction internal fixation right proximal humerus, open reduction to fixation right humeral shaft Anesthesia: General Surgeon: Tripp Lopez Slip Seat Coverer(s): Mu Montanez PA-C The surgical procedure was assisted by my physician licensed physical therapist assistant. My P.A. presence was necessary throughout this case for the manipulation and positioning of the surgical extremity. My P.A. was assisting me throughout the duration of this procedure. The skill set of a physician licensed physical therapist assistant was medically necessary to complete this procedure. During the surgical case the rn medical surgical was working at the back table and the physician licensed physical therapist assistant was directly assisting me. Operation and Findings: Implants used: Synthes Plan of activity: Sling and swath, pendulum exercises Details of procedure: Patient was seen and evaluated preoperatively. Patient was found to have a displaced right proximal humerus fracture with extension into the humeral shaft. The risks and benefits of surgical and nonsurgical options were discussed in detail and informed consent was obtained for surgery. Patient was brought to the operating room and placed on or table. IV sedation and GETA were administered by anesthesiologist. Antibiotics were given prior to incision. Operative arm and shoulder were prepped with alcohol followed by Hibiclens and draped usual sterile fashion. Timeout procedure was performed. Procedure began with a 8 inch incision over the anterior shoulder and arm. Cephalic vein was identified. A deltopectoral approach was utilized proximally. Distally the brachialis was split. The fracture was now visualized. There was significant comminution with extension into the humeral neck down into the humeral shaft. Soft tissue was retracted. Attention was now turned to reduction. Gentle traction was applied of the humeral shaft. Multiple fragments were carefully manipulated. Fracture fragments were reduced. 2.7 cortical lag screws were used to compress fracture fragments. After the humeral shaft fractures were reduced, the humeral shaft was reduced to the humeral head. Fracture was manipulated to achieve excellent reduction. Multiplanar fluoroscopy confirmed well aligned fracture. Multiple K wires were used to hold provisional fixation. A long Synthes proximal humerus plate was selected to span all fractures. Plate was provisionally held in place K wires. 3.5 cortical screws were used to compress plate to bone. Fluoroscopy confirmed appropriate plate placement and fracture reduction. Multiple locking screws were now placed in the humeral head. Screws were predrilled and premeasured for appropriate length. Care was taken not to penetrate the articular surface. Additional screws were placed in the humeral shaft. Final fluoroscopy revealed well aligned fracture with well-placed hardware. Wound was thoroughly irrigated. Fascia was closed with #1 Vicryl, subcutaneous tissues closed with 3-0 Vicryl, and skin was closed with julianne. Sterile dressings were applied. Patient was placed into a sling. Patient was awakened and transferred to recovery in stable condition. Needle and sponge counts were correct. Tripp Lopez MD Dec 21, 2017 13:09
[2017-12-21] MEDS ORDERED: DO NOT ADM ANY ANTICOAGULANT DRUGS PRN (13:17)
[2017-12-21] MEDS ORDERED: *MEPERIDINE 25 MG INJ VIAL PERIprocedural Use ONLY ONE (13:27)
[2017-12-21] MEDS ORDERED: MIDAZOLAM HCL 2 MG/2 ML VIAL ONE (13:35)
[2017-12-21] MEDS ORDERED: *morphine SULFATE 4 MG/ML PERIprocedure ONLY ONE (13:40)
[2017-12-21] MEDS ORDERED: BUPIVACAINE HCL PF 0.5% 30 ML VIAL ONE (13:55)
--- NOTE | 2017-12-21 13:58 | EKG ---
Date Performed: 12/21/2017 Time Performed: 10:09:58 PTAGE: 67 years EKG: Normal Sinus rhythm ELECTRONIC VENTRICULAR PACEMAKER ABNORMAL RHYTHM ECG No significant change from prior electrocardiog mike. PREVIOUS TRACING : 02/21/2016 08.31 DOCTOR: Steve Kessler Interpretating Date/Time 12/21/2017 13:56:44
[2017-12-21] MEDS ORDERED: HYDROmorphone HCL PF 2 MG/ML VIAL ONE (14:09)
--- NOTE | 2017-12-21 14:36 | RADRPT ---
EXAM DATE: 12/21/2017 2:03 PM EDT AGE/SEX: 67 years / Female INDICATIONS: ORIF right humeral head fracture. CLINICAL DATA: This is the patient's subsequent encounter. Patient reports that signs and symptoms h ave been present for 1 week and indicates a pain score of Nonresponsive. MEDICAL/SURGICAL HISTORY: Non-responsive. Non-responsive. COMPARISON: No prior exams available for comparison. FINDINGS: Postsurgical changes following open reduction and internal fixation of a comminuted proximal right hu meral fracture are noted. Impression medullary plate has been placed from the humeral neck to the mid shaft. Multiple fixation screws are noted. There is satisfactory anatomic alignment of the fracture fragments. CONCLUSION: Satisfactory postoperative appearance of the right humerus following ORIF. Electronically signed by: Monty Odom MD 12/21/2017 2:35 PM EDT
[2017-12-21] MEDS: CALCIUM/VITAMIN D 250 MG/125 U TAB PO SCH ×2 (15:00→18:10)
[2017-12-21] MEDS ORDERED: ERGOCALCIFEROL (VIT D2) 50,000 UNIT CAP PO SCH (15:00)
[2017-12-21] MEDS: ceFAZolin 2 GM PREMIX 50 ML IV SCH ×2 (16:00→23:21)
[2017-12-21 17:12] VITALS: BP 118/56; PULSE 61; RESP 19; TEMP 97; O2SAT 96
[2017-12-21 20:35] VITALS: BP 100/49; PULSE 73; RESP 17; TEMP 97.4; O2SAT 93
[2017-12-21] MEDS ORDERED: MIRTAZAPINE 15 MG TAB PO SCH (21:00)
[2017-12-21] MEDS: FERROUS SULFATE 325 MG (65 MG ELEMENTAL IRON) TAB PO SCH (21:14)
[2017-12-21] MEDS: DOCUSATE SODIUM 50 MG/SENNA 8.6 MG TAB PO SCH (21:14)
[2017-12-21] MEDS: methylPREDNISolone 4 MG TAB PO SCH (21:24)
[2017-12-22 00:05] VITALS: BP 106/55; PULSE 64; RESP 16; TEMP 97.2; O2SAT 93
[2017-12-22 04:45] VITALS: BP 101/54; PULSE 60; RESP 16; TEMP 97.3; O2SAT 96
--- NOTE | 2017-12-22 06:51 | PD.ORT.PN ---
Subjective Subjective Remarks POD 1 s/p ORIF right proximal humerus doing well. no pain. out of bed to chair. states ready to go home Objective Vitals Vital Signs Date Time Temp Pulse Resp B/P (MAP) Pulse Ox O2 Delivery O2 Flow Rate FiO2 12/22/17 00:05 97.2 64 16 106/55 (72) 93 12/21/17 20:35 97.4 73 17 100/49 (66) 93 12/21/17 17:12 97.0 61 19 118/56 (76) 96 12/21/17 16:24 97.6 62 20 96/53 (67) 100 Nasal Cannula 2 12/21/17 15:30 62 20 96/53 (67) 100 Nasal Cannula 2 12/21/17 14:30 60 20 104/51 (68) 100 Nasal Cannula 2 12/21/17 14:15 60 20 112/54 (73) 100 Nasal Cannula 2 12/21/17 14:00 66 20 129/58 (81) 100 Nasal Cannula 2 12/21/17 13:45 76 20 130/59 (82) 100 Nasal Cannula 2 12/21/17 13:24 97.6 77 20 130/63 (85) 99 Nasal Cannula 2 12/21/17 10:00 98.7 76 18 128/67 (87) 97 I/O 12/21/17 12/21/17 12/21/17 12/22/17 12/22/17 12/22/17 07:00 15:00 23:00 07:00 15:00 23:00 Intake Total 1000 ml 106 ml 50 ml Output Total 100 ml Balance 900 ml 106 ml 50 ml Intake IV Total 106 ml 50 ml Other 1000 ml Output Estimated Blood Loss 100 ml Result Diagram: 12/21/17 1012 Objective Remarks RUE: dressing clean and dry.intact. +sling. nvi Assessment & Plan Assessment and Plan 1) right Proximal Humerus fx s/p ORIF- POD 1 -NWB -pendulums -daily dressing chagnes POD 2 with primapore -DC hoem today with [facility] -f/u 2 weeks with buddy or Mu Tejada/Ring Cutter Lathe Operator TEDDY Dec 22, 2017 06:51
--- NOTE | 2017-12-22 06:52 | HHI.FF ---
Face to Face Verification Diagnosis: (1) Proximal humerus fracture Occupational Therapy Right UE Weight Bearing: Non WB Right UE Range of Motion: Pendular Nursing Dressing Changes: Daily dressing change, Xeroform, Coverderm/Primapore I have seen patient Odalis Dumont on 12/22/17. My clinical findings support the need for the requested home health care services because: Ltd mobility - disease progression I certify that my clinical findings support that this patient is homebound because: Post-op weakness Mu Montanez/Supervisor [place] PA Dec 22, 2017 06:52
--- NOTE | 2017-12-22 07:17 | HHI.DS ---
Discharge Summary Admission Date Dec 21, 2017 at 12:57 Discharge Date: Dec 22, 2017 Admitting Diagnosis Right proximal humerus fracture Diagnosis: (1) Proximal humerus fracture Diagnosis: Principal ICD Codes: S42.209A - Unspecified fracture of upper end of unspecified humerus , initial encounter for closed fracture Procedures Open reduction internal fixation of right proximal humerus CBC/BMP: 12/21/17 1012 Significant Findings Laboratory Tests Test 12/21/17 10:12 Red Blood Count 2.53 MIL/MM3 (4.00-5.30) Hemoglobin 7.3 GM/DL (11.6-15.3) Hematocrit 22.5 % (35.0-46.0) PE at Discharge RUE: dressing clean and dry.intact. +sling. nvi Hospital Course Patient was admitted for outpatient basis for open reduction internal fixation of right proximal humerus. She tolerated procedure well. She was admitted to 6 N. I postop day 1, she was ambulatory on her own with minimal discomfort. She states her pain was well controlled. She is hemodynamically stable and fit for discharge home with home health care. She will remain nonweightbearing on the right arm. She will have daily dressing changes with Xeroform and a Prim[place] dressing. She will begin pendular exercises. She will follow-up in [address] Toure or his PA Pt Condition on Discharge: Good Discharge Disposition: Disch w/ Home Health Serv Discharge Instructions Diet Instructions: As Tolerated, No Restrictions Activities You Can Perform: Non Weight Bearing Follow up Referrals: Orthopedics - 2 Weeks @ [facility] with Tripp Toure MD New Medications: Hydrocodone-Acetaminophen ([place]) 10-325 Mg Tab 1 TAB PO Q4H PRN for PAIN, #60 TAB 0 Refills Mu Montanez/Architectural Manager PA Dec 22, 2017 07:17
[2017-12-22 08:00] VITALS: BP 105/57; PULSE 68; RESP 18; TEMP 97.4; O2SAT 98
[2017-12-22] MEDS: ceFAZolin 2 GM PREMIX 50 ML IV SCH (08:40)
[2017-12-22] MEDS: CALCIUM/VITAMIN D 250 MG/125 U TAB PO SCH (08:40)
[2017-12-22] MEDS: methylPREDNISolone 4 MG TAB PO SCH (08:40)
[2017-12-22] MEDS: DOCUSATE SODIUM 50 MG/SENNA 8.6 MG TAB PO SCH (08:40)
[2017-12-22] MEDS: FERROUS SULFATE 325 MG (65 MG ELEMENTAL IRON) TAB PO SCH (08:40)
[2017-12-22] MEDS ORDERED: CHOLECALCIFEROL (VIT D3) 1000 UNIT TAB PO SCH (09:00)
== END 2017-12-22 10:29 | disposition home health service (06) ==
LOC: HSDC 07:58 → HSDI 12:57 → N06B 16:52
PROVIDERS: ADMIT Orthopaedic Surgery Orthopaedic Trauma; ATTEND Orthopaedic Surgery Orthopaedic Trauma
DX: S42.291A Other displaced fracture of upper end of right humerus, initial encounter for closed fracture (principal); W19.XXXA Unspecified fall, initial encounter; Y93.01 Activity, walking, marching and hiking; Z01.810 Encounter for preprocedural cardiovascular examination
CPT/HCPCS: 01630; 23615; 24516; 73030; 76000; 85025; 93005; 96365; 97167; C1713; G0378; G8987; G8988; J0131; J0690; J1100; J1170; J1580; J2175; J2250; J2270; J2370; J2405; J2710; J3010; J3370; J7050; J7120; J7509